=== PATIENT | male | born 1960 | race Caucasian/White ===

== ENCOUNTER 2018-11-18 08:12 | Emergency (ER) | payer MEDICARE, OTHER ==
[2018-11-18 08:31] LABS: ADD MAN DIFF? NO
[2018-11-18] MEDS: SOD CHLORIDE 0.9% 500 ML IV (08:31)
[2018-11-18] MEDS: morphine 4 MG/ML VIAL IV (08:33)
[2018-11-18 08:34] LABS: WHITE BLOOD COUNT 14.1 10^3/ul (4.8-10.8)
[2018-11-18 08:34] LABS: ABNORMAL IP MESSAGE 1; BASOPHIL # 0.1 10^3/ul (0.0-0.1); BASOPHILS % 0.5 % (0.0-2.0); EOSINOPHILS # 0.1 10^3/ul (0.0-0.5); EOSINOPHILS % 0.9 % (0.0-7.0); HEMATOCRIT 51.4 % (42.0-52.0); LYMPHOCYTES # 6.7 10^3/ul (0.8-2.9); LYMPHOCYTES % 47.8 % (15.0-51.0); MEAN CORPUSCULAR HEMOGLOBIN 28.9 pg (29.0-33.0); MEAN CORPUSCULAR HGB CONC 33.1 g/dl (32.0-37.0); MEAN CORPUSCULAR VOLUME 87.3 fl (82.0-101.0); MEAN PLATELET VOLUME 10.3 fl (7.4-10.4); MONOCYTE # 1.2 10^3/ul (0.3-0.9); MONOCYTES % 8.8 % (0.0-11.0); NEUTROPHIL # 5.9 10^3/ul (1.6-7.5); NEUTROPHILS % 41.6 % (39.0-77.0); PLATELET COUNT 343 10^3/UL (140-415); POSITIVE DIFF @See below; RED BLOOD COUNT 5.89 10^6/ul (4.70-6.10); RED CELL DISTRIBUTION WIDTH 12.4 % (11.5-14.5)
[2018-11-18] MEDS: ONDANSETRON 4 MG INJ IV (08:34)
[2018-11-18] MEDS: ASPIRIN 325 MG TAB PO (08:34)
[2018-11-18] MEDS: NITROGLYCERIN (SL) 0.4 MG TAB SL (08:34)
[2018-11-18 08:51] LABS: ANION GAP 14 (5-13); BLOOD UREA NITROGEN 13 mg/dl (7-20); CALCIUM 10.7 mg/dl (8.4-10.2); CARBON DIOXIDE 25 mmol/L (21-31); CHLORIDE 105 mmol/L (97-110); CREATININE 0.82 mg/dl (0.61-1.24); Estimated GFR > 60 mL/min (>60); GLUCOSE 126 mg/dl (70-220); LIPASE 126 U/L (23-300); POTASSIUM 4.7 mmol/L (3.5-5.1); SODIUM 144 mmol/L (135-144)
[2018-11-18] MEDS ORDERED: HEPARIN 5,000 UNIT/0.5 ML VIAL (08:51)
[2018-11-18 08:53] LABS: INR 0.89; PROTIME 12.1 Sec (11.9-14.9); PT RATIO 0.9
[2018-11-18 08:54] LABS: PARTIAL THROMBOPLASTIN TIME 28.3 Sec (23.0-35.0)
[2018-11-18] MEDS ORDERED: HEPARIN 1000 UNITS/ML 10 ML INJ IV (09:00)
[2018-11-18 09:03] LABS: B-TYPE NATRIURETIC PEPTIDE 169 PG/ML (0-125); TROPONIN-I 0.018 ng/ml (0.000-0.120)
== END 2018-11-18 09:01 | disposition short-term general hospital (02) ==
LOC: E/R 08:12
DX: I21.3 ST elevation (STEMI) myocardial infarction of unspecified site (principal); I25.2 Old myocardial infarction; Z95.1 Presence of aortocoronary bypass graft; Z98.61 Coronary angioplasty status
CPT/HCPCS: 36415; 71045; 80048; 82962; 83690; 83880; 84484; 85025; 85610; 85730; 93005; 96374; 96375; 99291-25